=== PATIENT | male | born 1990 | race Caucasian/White ===

== ENCOUNTER 2016-11-26 21:10 | Emergency (ER) | payer OTHER ==
[~2016-11-26 21:10] MED LIST: NO MEDICATIONS
== END 2016-11-26 21:31 | disposition left against medical advice (07) ==
LOC: CED 21:10
DX: Z53.21 Procedure and treatment not carried out due to patient leaving prior to being seen by health care provider (principal)

== ENCOUNTER 2016-11-29 11:45 | Emergency (ER) | payer OTHER ==
[2016-11-29 14:46] LABS: BASOPHIL% 0.2 % (0-2.5); HEMATOCRIT 42.3 % (38.0-50.0); HEMOGLOBIN 13.9 gm/dL (13.0-16.0); LYMPHOCYTE# 1.1 X10e3 (1.0-3.5); LYMPHOCYTE% 12.6 % (17.0-45.0); MEAN CELL VOLUME 89.3 FL (83-96); MEAN CORPUSCULAR HEMOGLOBIN 29.3 PG (28-34); MEAN CORPUSCULAR HGB CONC 32.8 g/dL (30-36); MEAN PLATELET VOLUME 8.1 FL (6.5-11.5); MONOCYTE# 0.4 X10e3 (0-1.0); MONOCYTE% 4.1 % (3.0-12.0); NEUTROPHIL# 7.2 X10e3 (1.5-7.1); NEUTROPHIL% 83.1 % (40-75); PLATELET COUNT 228 X10e3 (140-420); RED BLOOD COUNT 4.74 X10e (3.90-5.60); RED CELL DISTRIBUTION WIDTH 14.6 % (11.0-15.5); WHITE BLOOD COUNT 8.7 X10e3 (4.0-10.5)
[2016-11-29 14:59] LABS: DIFF IND NO
[2016-11-29 15:18] LABS: BUN/CREATININE RATIO 15.71; CALCIUM SERUM 9.1 mg/dL (8.4-10.2); CREATININE SERUM 0.7 mg/dL (0.6-1.4); GLOM FILT RATE Estimated 132.1 mL/min (>60)
== END 2016-11-29 16:40 | disposition home or self-care (01) ==
LOC: CED 11:45
PROVIDERS: Emergency Medicine
DX: R21 Rash and other nonspecific skin eruption (principal); Z86.19 Personal history of other infectious and parasitic diseases; Z91.09 Other allergy status, other than to drugs and biological substances
CPT/HCPCS: 36415; 80048; 85025; 96365; 96375; 99283; J1200; J2930